=== PATIENT | female | born 1995 | race Asian ===

== ENCOUNTER 2016-08-28 15:08 | Emergency (ER) | payer OTHER ==
[2016-08-28 15:18] VITALS: BP 117/76; PULSE 79; TEMP 98; BMI 24.1
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
== END 2016-08-28 17:24 | disposition home or self-care (01) ==
LOC: JERFT 15:08
DX: S40.011A Contusion of right shoulder, initial encounter (principal); S40.021A Contusion of right upper arm, initial encounter; V43.62XA Car passenger injured in collision with other type car in traffic accident, initial encounter; Y92.414 Local residential or business street as the place of occurrence of the external cause; Y93.89 Activity, other specified; Y99.8 Other external cause status
CPT/HCPCS: 73030-TC-RT; 73060-TC-RT; 84703; 99281-25

== ENCOUNTER 2016-11-01 10:41 | Emergency (ER) | payer OTHER ==
[2016-11-01 10:48] VITALS: BP 111/44; PULSE 77; TEMP 98; BMI 24.5
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
[2016-11-01] MEDS ORDERED: traMADol HCL 50 MG TABLET PO ONE (11:40)
[2016-11-01] MEDS ORDERED: traMADol HCL 50 MG TABLET ONE (11:51)
== END 2016-11-01 12:11 | disposition home or self-care (01) ==
LOC: JERFT 10:41
DX: S39.82XA Other specified injuries of lower back, initial encounter (principal); X50.0XXA Overexertion from strenuous movement or load, initial encounter; X50.3XXA Overexertion from repetitive movements, initial encounter; Y93.89 Activity, other specified; Y92.89 Other specified places as the place of occurrence of the external cause; Y99.0 Civilian activity done for income or pay
CPT/HCPCS: 99281-25

== ENCOUNTER 2017-05-24 16:00 | Emergency (ER) | payer OTHER ==
--- NOTE | 2017-05-24 16:21 | PDOC ---
Rapid Medical Evaluation Time Seen by Provider: 05/24/17 16:18 Medical Evaluation: Allergies Allergy/AdvReac Type Severity Reaction Status Date / Time ibuprofen [From Advil] Allergy Verified 11/01/16 10:48 05/24/17 16:19 Pt presents with complaint of : wants std testing, no complaints, vag itching 2 weeks ago I have ordered the following: ua, upreg, gc/chlamydia Pt will go to the Emergency Dept for further workup Discharge Disposition - Diagnosis Screening for STD (sexually transmitted disease) - Referrals - Patient Instructions - Post Discharge Activity
[2017-05-24 16:23] VITALS: BP 125/84; PULSE 83; TEMP 98.4; BMI 23.6
[2017-05-24 17:32] LABS: URINE APPEARANCE SLCLOUDY; URINE BILIRUBIN NEGATIVE (NEGATIVE); URINE BLOOD 2+ (NEGATIVE); URINE COLOR YELLOW; URINE GLUCOSE (UA) NEGATIVE (NEGATIVE); URINE KETONE NEGATIVE (NEGATIVE); URINE NITRITE NEGATIVE (NEGATIVE); URINE PROTEIN NEGATIVE (NEGATIVE); URINE UROBILINOGEN NEGATIVE mg/dL (0.2-1.0)
[2017-05-24 17:58] LABS: URINE BACTERIA RARE /hpf (NONE SEEN); URINE MUCUS RARE; URINE WBC 6 /hpf (3-5)
[2017-05-24 18:02] LABS: URINE RBC 17 /hpf (0-3)
[2017-05-24 18:11] LABS: HIV 1 & 2 AB NEGATIVE; HIV 1 AGp24 NEGATIVE
[2017-05-24] MEDS ORDERED: AZITHROMYCIN 250 MG TABLET PO ONE (18:25)
--- NOTE | 2017-05-24 18:28 | PDOC ---
History of Present Illness - General Chief Complaint: Vaginal Sxs Stated Complaint: STD TESTING Time Seen by Provider: 05/24/17 16:18 History Source: Patient Exam Limitations: No Limitations - History of Present Illness Initial Comments: 05/24/17 18:30 My chief complaint: Vaginal itching 2 weeks ago once to be tested for STD's History of present illness: Patient is a 21-year-old female with no significant medical issues here today requesting to be checked for STDs due to patient having vaginal itchiness of her labia 2 weeks ago with no change in normal vaginal discharge. Patient did have unprotected sex patient reports itchiness lasted for one day. Patient has not been on any antibiotics. Patient denies any other symptoms. Patient denies any urinary symptoms. Patient started her menses today. Patient is not on control. Timing/Duration: other (2 weeks ago vaginal itchiness) Severity: mild Associated Symptoms: reports: denies symptoms Past History - Past Medical History Allergies/Adverse Reactions: Allergies Allergy/AdvReac Type Severity Reaction Status Date / Time ibuprofen [From Advil] Allergy Verified 05/24/17 16:23 Home Medications: Ambulatory Orders NK [No Known Home Medication] 05/24/17 COPD: No Other medical history: denies - Suicide/Smoking/Psychosocial Hx Smoking History: Never smoked Have you smoked in the past 12 months: Yes Number of Cigarettes Smoked Daily: 3 Information on smoking cessation initiated: Yes 'Breaking Loose' booklet given: 08/28/16 Hx Alcohol Use: No Drug/Substance Use Hx: No Substance Use Type: None Review of Systems - Review of Systems Able to Perform ROS?: Yes Constitutional: No: Symptoms Reported HEENTM: No: Symptoms Reported Respiratory: No: Symptoms reported Cardiac (ROS): No: Symptoms Reported ABD/GI: No: Symptoms Reported : Yes: Other (ithciness of vagina labia 2 weeks ago, wants to be checked for STD's, ) Musculoskeletal: No: Symptoms Reported Integumentary: No: Symptoms Reported Neurological: No: Symptoms reported *Physical Exam - Vital Signs Last Vital Signs Temp Pulse Resp BP Pulse Ox 98.4 F 83 18 125/84 100 05/24/17 16:21 05/24/17 16:21 05/24/17 16:21 05/24/17 16:21 05/24/17 16:21 - Physical Exam General Appearance: Yes: Appropriately Dressed Respiratory/Chest: positive: Lungs Clear, Normal Breath Sounds. negative: Chest Tender, Respiratory Distress Cardiovascular: positive: Regular Rhythm, Regular Rate, S1, S2 Female Pelvic Exam: positive: normal external exam, cervical os closed, normal adnexa, vaginal bleeding (started today), other (menses ). negative: Bartholin mass Gastrointestinal/Abdominal: positive: Normal Bowel Sounds, Soft. negative: Organomegaly, Distended, Guarding, Rebound, Tenderness, Hepatomegaly, Spleenomegaly Integumentary: positive: Normal Color Neurologic: positive: Alert ED Treatment Course - ADDITIONAL ORDERS Additional order review: Laboratory Results 05/24/17 16:56 Urine Color Yellow Urine Appearance Slcloudy Urine pH 5.0 Ur Specific [place] 1.018 Urine Protein Negative Urine Glucose (UA) Negative Urine Ketones Negative Urine Blood 2+ H Urine Nitrite Negative Urine Bilirubin Negative Urine Urobilinogen Negative Urine WBC (Auto) 6 Urine RBC (Auto) 17 Ur Epithelial Cells Rare Urine Bacteria Rare Urine Mucus Rare Urine HCG, Qual Negative Medical Decision Making - Medical Decision Making 05/24/17 18:23 Patient is a 21-year-old female with no significant medical issues here today requesting to be checked for STDs due to patient having vaginal itchiness of her labia 2 weeks ago with no change in normal vaginal discharge. Patient did have unprotected sex patient reports itchiness lasted for one day. Patient has not been on any antibiotics. Patient denies any other symptoms. Patient denies any urinary symptoms. Patient started her menses today. Patient is not on control. unprotected sex r/o STD PLAN: ordered in RME u/a urine hcg negative chlamydia/GC amplification RPR HIV 1 & 2 antibody HIV P24 odered in [employer] ROCephin 250 mg IM now Azithromycin 1000 mg po now genital culture Laboratory Tests 05/24/17 05/24/17 16:56 16:56 Urine Color Yellow Urine pH 5.0 Ur Specific [place] 1.018 Urine Protein Negative Urine Glucose (UA) Negative Urine Ketones Negative Urine Blood 2+ H Urine Nitrite Negative Urine Bilirubin Negative Urine Urobilinogen Negative Urine WBC (Auto) 6 Urine RBC (Auto) 17 Ur Epithelial Cells Rare Urine Bacteria Rare Urine Mucus Rare Urine HCG, Qual Negative HIV 1&2 Antibody Screen Negative HIV P24 Antigen Negative 05/24/17 18:26 05/24/17 18:31 05/26/17 19:45 *DC/Admit/Observation/Transfer Diagnosis at time of Disposition: Screening for STD (sexually transmitted disease), Unprotected sexual intercourse - Discharge Dispostion Disposition: HOME Condition at time of disposition: Stable - Referrals Referrals: Jason Colmenares MD [Primary Care Provider] - - Patient Instructions Additional Instructions: Follow-up with your SENIOR SCIENTIST for further evaluation Make sure you use condoms when having any sexual relations Patient to call lab line in 3-4 days for final results of labs done today Patient voiced understanding of discharge instructions and all questions were answered - Post Discharge Activity
[2017-05-24] MEDS ORDERED: AZITHROMYCIN 500 MG TABLET ONE (18:31)
[2017-05-24 19:44] LABS: URINE LEUK ESTERASE TRACE (NEGATIVE)
--- NOTE | 2017-05-29 16:51 | PDOC ---
Patient Follow-up (Call Back) - Post ED Follow - Up Condition at time of discharge: Stable Disposition at time of original discharge: HOME Reason for Call Back: Abnwl. Microbiology (pt. was informed that her STD testing on 05/24/2017 was positive for chlamydia and that she was treated when she was here and negative for gonorrhea. Patient was told to inform her partner and patient has not had resume sexual relations with this person. Patient was told always make sure that she uses condoms when having sexual relations with others.)
== END 2017-05-24 18:38 | disposition home or self-care (01) ==
LOC: JERFT 16:00
DX: Z11.3 Encounter for screening for infections with a predominantly sexual mode of transmission (principal)
CPT/HCPCS: 36415; 81003; 81015; 84703; 86593; 87070; 87205; 87389; 87491; 87591; 99281-25

== ENCOUNTER 2018-06-30 00:07 | Emergency (ER) | payer OTHER ==
[2018-06-30 01:00] VITALS: BP 124/84; PULSE 74; TEMP 98.1; BMI 22.6
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
== END 2018-06-30 02:26 | disposition home or self-care (01) ==
LOC: JER 00:07
DX: S40.011A Contusion of right shoulder, initial encounter (principal); V43.62XA Car passenger injured in collision with other type car in traffic accident, initial encounter; Y92.414 Local residential or business street as the place of occurrence of the external cause; Y93.89 Activity, other specified; Y99.8 Other external cause status
CPT/HCPCS: 99283-25

== ENCOUNTER 2018-07-01 17:24 | Emergency (ER) | payer OTHER ==
[2018-07-01 17:32] VITALS: BP 126/72; PULSE 94; TEMP 98; BMI 26.4
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
== END 2018-07-01 18:28 | disposition home or self-care (01) ==
LOC: JERFT 17:24
DX: S16.1XXA Strain of muscle, fascia and tendon at neck level, initial encounter (principal); V43.62XA Car passenger injured in collision with other type car in traffic accident, initial encounter; Y92.410 Unspecified street and highway as the place of occurrence of the external cause; Z72.0 Tobacco use
CPT/HCPCS: 84703; 99281-25

== ENCOUNTER 2018-07-05 11:07 | Emergency (ER) | payer OTHER ==
[2018-07-05 11:39] VITALS: BP 110/66; PULSE 66; TEMP 97.8; BMI 26.4
--- NOTE | 2018-07-05 11:58 | PDOC ---
*Physical Exam - Vital Signs Last Vital Signs Temp Pulse Resp BP Pulse Ox 97.8 F 66 16 110/66 99 07/05/18 11:36 07/05/18 11:36 07/05/18 11:36 07/05/18 11:36 07/05/18 11:36 Medical Decision Making - Medical Decision Making 07/05/18 11:58 Pt seen by Midlevel Provider under my direct supervision Ancillary studies reviewed I agree with plan as outlined by Midlevel Provider *DC/Admit/Observation/Transfer Diagnosis at time of Disposition: Shoulder pain, right, Low back pain - Discharge Dispostion Disposition: HOME Condition at time of disposition: Stable - Prescriptions Prescriptions: Methocarbamol [Robaxin -] 500 mg PO BID #14 tablet Methylprednisolone [Medrol Dose Tu] 4 mg PO ASDIR #21 tablet - Referrals Referrals: Conor Arias MD [Staff Physician] - Aamir Segundo MD [Staff Physician] - Dewayne Green DO [Staff Physician] - - Patient Instructions Printed Discharge Instructions: DI for Low Back Pain, DI for Shoulder Pain Additional Instructions: You have low back pain due to a muscle spasm. It can take 10-14 days before you feel completely better Please take Naproxen twice a day You were also prescribed Roboxen Take the medication before you go to bed. Do not drive after taking this medication as it may make you sleepy. You may use warm compresses on your back to help with your symptoms. No lifting more than 10 lbs until your symptoms resolve. Do gentle stretching exercises as discussed Please follow-up with orthopedics. A referral has been provided to you. Return to the emergency department if you have worsening back pain, bladder or bowel incontinence, numbness and tingling in her legs, changes in the way you walk, or any new or worsening symptoms. - Post Discharge Activity Forms/Work/School Notes: Back to Work
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
== END 2018-07-05 12:51 | disposition home or self-care (01) ==
LOC: JER 11:07
DX: M62.830 Muscle spasm of back (principal); M25.511 Pain in right shoulder; V43.62XD Car passenger injured in collision with other type car in traffic accident, subsequent encounter
CPT/HCPCS: 99282-25

== ENCOUNTER 2018-12-16 18:06 | Emergency (ER) | payer OTHER ==
[2018-12-16] MEDS ORDERED: ACETAMINOPHEN 500 MG TABLET (FP) PO ONE (18:15)
--- NOTE | 2018-12-16 18:15 | PDOC ---
Rapid Medical Evaluation Chief Complaint: Back Pain Time Seen by Provider: 12/16/18 18:14 Medical Evaluation: Allergies Allergy/AdvReac Type Severity Reaction Status Date / Time ibuprofen [From Advil] Allergy Verified 12/16/18 18:12 12/16/18 18:14 I have performed a brief in-person evaluation of this patient. The patient presents with a chief complaint of: lower back pain radiaiting down BLE Pertinent physical exam findings: No deformity present. I have ordered the following: tylenol The patient will proceed to the ED for further evaluation. Discharge Disposition - Diagnosis Low back pain - Referrals - Patient Instructions - Post Discharge Activity
[2018-12-16 18:16] VITALS: BP 125/80; PULSE 86; TEMP 98.3; BMI 24.5
[2018-12-16] MEDS ORDERED: ACETAMINOPHEN 325 MG TABLET (FP) ONE (18:55)
--- NOTE | 2018-12-16 19:09 | PDOC ---
History of Present Illness - General Chief Complaint: Back Pain Stated Complaint: LOWER BACK PAIN Time Seen by Provider: 12/16/18 18:14 - History of Present Illness Initial Comments: 12/16/18 19:03 23 y/o F w/o CM presents for evaluation of 4 days of atraumatic onset of LBP with B anterior radiculopathy without systemic symptoms or loss of bowel or bladder function. Past History - Past Medical History Allergies/Adverse Reactions: Allergies Allergy/AdvReac Type Severity Reaction Status Date / Time ibuprofen [From Advil] Allergy Verified 12/16/18 18:12 Home Medications: Ambulatory Orders Cyclobenzaprine HCl [Flexeril 10 mg] 10 mg PO HS PRN #10 tablet 12/16/18 Methylprednisolone [Medrol Dose Tu] 4 mg PO ASDIR #21 tablet 12/16/18 COPD: No CHF: No Diabetes: No HTN: No - Surgical History Lung Surgery: No - Immunization History Immunization Up to Date: No - Suicide/Smoking/Psychosocial Hx Smoking History: Never smoked Have you smoked in the past 12 months: No Number of Cigarettes Smoked Daily: 3 'Breaking Loose' booklet given: 08/28/16 Hx Alcohol Use: No Drug/Substance Use Hx: No Substance Use Type: None Review of Systems - Review of Systems Musculoskeletal: Yes: Back Pain *Physical Exam - Vital Signs Last Vital Signs Temp Pulse Resp BP Pulse Ox 98.3 F 86 18 125/80 100 12/16/18 18:12 12/16/18 18:12 12/16/18 18:12 12/16/18 18:12 12/16/18 18:12 - Physical Exam Comments: 12/16/18 19:04 Lumbar spine skin color and temperature are normal. Range of motion is limited. There is moderate bilateral paralumbar musculature spasm and tenderness. No midline tenderness. 5 out of 5 strength bilateral lower extremities. Negative straight leg raise test positive femoral nerve stretch test bilaterally doesn't has a soft and nontender neurovascularly intact ED Treatment Course - Medications Given in the ED: ED Medications Discontinued Medications Generic Name Dose Route Start Last Admin Trade Name Freq PRN Reason Stop Dose Admin Acetaminophen 975 mg 12/16/18 18:15 12/16/18 18:57 Tylenol - PO 12/16/18 18:16 975 mg ONCE ONE Administration Medical Decision Making - Medical Decision Making 12/16/18 19:05 Femoral nerve radiculopathy, medrol dose pack and flexeril, pt assures me there is no chance of . F/U ortho spine. *DC/Admit/Observation/Transfer Diagnosis at time of Disposition: Low back pain, Lumbar radicular pain - Discharge Dispostion Disposition: HOME Condition at time of disposition: Stable Decision to Admit order: No - Referrals Referrals: Marcos Lion RES [Primary Care Provider] - Aamir León MD [Staff Physician] - - Patient Instructions Printed Discharge Instructions: Lumbar Radiculopathy, DI for Lumbar Radiculopathy Additional Instructions: Only take Tylenol while on the Medrol Dose Pack, no other antiinflamatory medication. The muscle relaxor is 1 tablet prior to bed it will make you sleepy Follow up with orthopedic spine surgery in 1-2 days without fail; Return to the emergency room if symptoms worsen. - Post Discharge Activity
== END 2018-12-16 19:16 | disposition home or self-care (01) ==
LOC: JERFT 18:06
DX: M54.16 Radiculopathy, lumbar region (principal)
CPT/HCPCS: 99281-25

== ENCOUNTER 2024-02-13 10:06 | Emergency (ER) | payer OTHER ==
[2024-02-13 10:11] VITALS: BP 112/72; PULSE 83; RESP 18; TEMP 98.6; BMI 25.1
[2024-02-13] MEDS ORDERED: DEXAMETHASONE SOD PHOSPHATE 10 MG/1 ML VIAL ONE (11:13)
[2024-02-13] MEDS ORDERED: KETOROLAC TROMETHAMINE 30 MG/1 ML VIAL ONE (11:13)
[2024-02-13] MEDS: KETOROLAC TROMETHAMINE 30 MG/1 ML VIAL IM ONE (11:22)
[2024-02-13] MEDS: DEXAMETHASONE SOD PHOSPHATE 10 MG/1 ML VIAL IM ONE (11:22)
== END 2024-02-13 11:58 | disposition home or self-care (01) ==
LOC: JERFT 10:06
PROC: 3E0233Z Introduction of Anti-inflammatory into Muscle, Percutaneous Approach (ICD-10-PCS; principal; 2024-02-13)
PROC: 3E023GC Introduction of Other Therapeutic Substance into Muscle, Percutaneous Approach (ICD-10-PCS; 2024-02-13)
DX: M54.41 Lumbago with sciatica, right side (principal); G89.29 Other chronic pain
CPT/HCPCS: 99284-25; J1100

== ENCOUNTER 2024-04-10 04:12 | Day surgery (SDC) | payer OTHER ==
[2024-04-08 12:29] VITALS: BMI 24.5
[2024-04-10 07:18] VITALS: RESP 18
[2024-04-10] MEDS ORDERED: BUPIVACAINE HCL/PF 0.25% (2.5MG/ML) 10 ML VIAL ONE (07:19)
[2024-04-10] MEDS ORDERED: TRIAMCINOLONE ACET 40MG/1ML VIAL ONE (07:19)
[2024-04-10] MEDS ORDERED: LIDOCAINE HCL/PF 2% SDV 5ML VIAL ONE (07:19)
[2024-04-10] MEDS ORDERED: LIDOCAINE HCL/PF 1% SDV 5ML VIAL ONE (07:20)
[2024-04-10] MEDS ORDERED: BUPIVACAINE HCL/PF 0.75% 10 ML VIAL ONE (07:20)
[2024-04-10] MEDS ORDERED: BUPIVACAINE HCL/PF 0.5% (5MG/ML) 10 ML VIAL ONE (07:20)
[2024-04-10] MEDS ORDERED: DEXAMETHASONE SOD PHOSPHATE 10 MG/1 ML VIAL ONE (07:21)
[2024-04-10] MEDS ORDERED: SODIUM CHLORIDE 0.9% P/F 10 ML VIAL IJ ONE ×2 (07:26→07:27)
[2024-04-10] MEDS: LIDOCAINE HCL 1% PRESERVATIVE FREE - 30ML VIAL IJ ONE (09:10)
[2024-04-10] MEDS: DEXAMETHASONE SOD PHOSPHATE 10 MG/1 ML VIAL IM ONE (09:10)
[2024-04-10] MEDS: IOHEXOL 180 MG/1 ML ML IJ ONE (09:10)
[2024-04-10] MEDS ORDERED: ACETAMINOPHEN 500 MG TABLET (FP) PO PRN (09:20)
[2024-04-10 09:43] VITALS: BP 118/78; PULSE 88; TEMP 98.6
== END 2024-04-10 09:45 | disposition home or self-care (01) ==
LOC: JASU-SURG 04:12
PROVIDERS: ATTEND Pain Medicine Pain Medicine
PROC: 3E0R3BZ Introduction of Anesthetic Agent into Spinal Canal, Percutaneous Approach (ICD-10-PCS; 2024-04-10)
PROC: 3E0R33Z Introduction of Anti-inflammatory into Spinal Canal, Percutaneous Approach (ICD-10-PCS; principal; 2024-04-10 09:07)
DX: M54.16 Radiculopathy, lumbar region (principal)
CPT/HCPCS: 76000-TC-FY; 81025; J1100